=== PATIENT | male | born 1990 | race Caucasian/White ===

== ENCOUNTER 2016-09-08 23:01 | Inpatient (IN) | payer SELFPAY ==
[~2016-09-08] VITALS: Ht 170.1 cm; Wt 57.8 kg
[~2016-09-08 23:01] MED LIST: ANAPROX DS550 MG PO; BACTRIM DS 8001 TA1 PO; CATAFLAM50 MG PO; CIPRO500 MG PO; CLARITIN10 MG PO; CORTISPORIN 1%-10 M1 OT; EES400 MG PO; NKHM; PERCOCET 325 MG1 TA2 PO; TRIMOX500 MG PO; ZOVIRAX800 MG PO
[2016-09-08 23:07] VITALS: BP 156/82
[2016-09-08 23:35] LABS: BASO # 0.1 10*3/uL (0.0-0.1); BASO % 0.6 % (0.0-1.0); EOS # 0.1 10*3/uL (0.0-0.4); EOS % 1.1 % (1.0-4.0); HEMATOCRIT 43.3 % (42.0-52.0); HEMOGLOBIN 15.3 g/dl (14.0-18.0); LYMPH # 4.1 10*3/uL (1.3-4.4); MEAN CELL VOLUME 86.8 fl (80.0-94.0); MEAN CORPUSCULAR HGB 30.7 pg (27.0-31.0); MEAN CORPUSCULAR HGB CONC 35.3 g/dl (33.0-37.0); MEAN PLATELET VOLUME 9.8 fl (9.6-12.3); MONO # 0.8 10*3/uL (0.1-1.0); MONO % 6.6 % (3.0-9.0); NEUT # 7.2 10*3/uL (2.3-7.9); NEUT % 58.5 % (47.0-73.0); PLATELET COUNT AUTOMATED 297 10*3/uL (130-400); RED BLOOD COUNT 4.99 10*6/uL (4.50-5.90); RED CELL DISTRI WIDTH 12.5 % (0-14.5); WHITE BLOOD COUNT 12.3 10*3/uL (4.8-10.8)
[2016-09-08 23:46] LABS: INTERNATIONAL NORM RATIO 0.9 (2.0-3.5); PROTHROMBIN TIME 9.5 SECONDS (9.0-12.4)
[2016-09-08 23:53] LABS: ALBUMIN 4.1 gm/dl (3.1-4.5); ALKALINE PHOSPHATASE 67 U/L (45-117); BILIRUBIN, TOTAL 0.6 mg/dl (0.2-1.0); BUN 6 mg/dl (7-24); CARBON DIOXIDE 25 mmol/L (21-32); CHLORIDE 104 mmol/L (98-107); EST GLOM FILT AFRICAN AMERICAN > 60 ml/min; GLUCOSE 76 mg/dL (65-99); POTASSIUM 3.6 mmol/L (3.5-5.1); SGOT/AST 32 IU/L (3-35); SGPT/ALT 45 U/L (12-78); SODIUM 138 mmol/L (136-145); TOTAL PROTEIN 7.8 gm/dL (6.4-8.2)
[2016-09-08 23:55] LABS: TROPONIN I < 0.015 ng/ml (<0.045)
[2016-09-09] VITALS (7 sets, daily range): BP systolic 100–167; BP diastolic 52–90
[2016-09-09 00:43] LABS: BILIRUBIN NEGATIVE (NEGATIVE); BLOOD NEGATIVE (NEGATIVE); CLARITY CLEAR (CLEAR); COLOR YELLOW (YELLOW); GLUCOSE NEGATIVE (NEGATIVE); KETONE NEGATIVE (NEGATIVE); LEUKO ESTERASE NEGATIVE (NEGATIVE); NITRITE NEGATIVE (NEGATIVE); PH 5.5 (5.0-9.0); PROTEIN NEGATIVE (NEGATIVE); SPECIFIC GRAVITY <= 1.005 (1.005-1.030); UROBILINOGEN 0.2 E.U./dl (0.2-1.0)
[2016-09-09 00:44] LABS: BACTERIA TRACE; EPITHELIAL CELLS 0-2; RBC 0-2 rbc/hpf (0-2); URINE REFLEX COMMENT NO (NO); WBC 0-2 wbc/hpf (0-5)
[2016-09-09 00:45] LABS: URINE AMPHETAMINES < 1000 (1000ng/ml); URINE BARBITURATES < 200 (200ng/ml); URINE COCAINE < 300 (300ng/ml)
[2016-09-09 06:14] LABS: BASO # 0.1 10*3/uL (0.0-0.1); BASO % 0.9 % (0.0-1.0); EOS # 0.2 10*3/uL (0.0-0.4); EOS % 2.5 % (1.0-4.0); HEMATOCRIT 43.7 % (42.0-52.0); HEMOGLOBIN 15.1 g/dl (14.0-18.0); LYMPH # 2.2 10*3/uL (1.3-4.4); LYMPH % 33.4 % (27.0-41.0); MEAN CELL VOLUME 88.8 fl (80.0-94.0); MEAN CORPUSCULAR HGB 30.7 pg (27.0-31.0); MEAN CORPUSCULAR HGB CONC 34.6 g/dl (33.0-37.0); MEAN PLATELET VOLUME 10.1 fl (9.6-12.3); MONO # 0.4 10*3/uL (0.1-1.0); MONO % 5.8 % (3.0-9.0); NEUT # 3.8 10*3/uL (2.3-7.9); NEUT % 57.1 % (47.0-73.0); PLATELET COUNT AUTOMATED 269 10*3/uL (130-400); RED BLOOD COUNT 4.92 10*6/uL (4.50-5.90); RED CELL DISTRI WIDTH 12.8 % (0-14.5); WHITE BLOOD COUNT 6.7 10*3/uL (4.8-10.8)
[2016-09-09 06:25] LABS: CKMB 1.6 ng/ml (0.5-3.6); CPK 189 U/L (39-308)
[2016-09-09 06:38] LABS: TROPONIN I < 0.015 ng/ml (<0.045)
[2016-09-09 06:43] LABS: ALBUMIN 3.7 gm/dl (3.1-4.5); ALKALINE PHOSPHATASE 63 U/L (45-117); BILIRUBIN, TOTAL 0.6 mg/dl (0.2-1.0); BUN 6 mg/dl (7-24); CARBON DIOXIDE 26 mmol/L (21-32); CHLORIDE 110 mmol/L (98-107); CHOLESTEROL 165 mg/dL (<200); EST GLOM FILT AFRICAN AMERICAN > 60 ml/min; GLUCOSE 80 mg/dL (65-99); HDL CHOLESTEROL 134 mg/dl (40-60); LDL CHOLESTEROL 24 mg/dL (9-159); MAGNESIUM 2.5 mg/dL (1.5-2.1); PHOSPHOROUS 3.4 mg/dL (2.5-4.9); POTASSIUM 4.2 mmol/L (3.5-5.1); SGOT/AST 33 IU/L (3-35); SGPT/ALT 41 U/L (12-78); SODIUM 143 mmol/L (136-145); TOTAL PROTEIN 7.3 gm/dL (6.4-8.2); TRIGLYCERIDES 37 mg/dl (<150); VLDL CHOLESTEROL 7 mg/dL (6-40)
[2016-09-09 06:45] LABS: INTERNATIONAL NORM RATIO 0.9 (2.0-3.5); PROTHROMBIN TIME 9.6 SECONDS (9.0-12.4)
[2016-09-09 06:49] LABS: FREE T4 0.78 ng/dl (0.76-1.46)
[2016-09-09 07:04] LABS: HEMOGLOBIN A1c 5.4 % (4.8-5.6)
[2016-09-09 07:36] LABS: FOLIC ACID 8.1 ng/mL (>5.38)
[2016-09-09 12:12] LABS: CKMB 1.5 ng/ml (0.5-3.6); CPK 168 U/L (39-308)
[2016-09-09 12:13] LABS: TROPONIN I < 0.015 ng/ml (<0.045)
[2016-09-09] MEDS ORDERED: D3-5050000 IU PO (12:26)
== END 2016-09-09 13:05 | disposition home or self-care (01) | DRG 313 ==
LOC: ED 23:01 → 4E 09-09 01:26 → EDHOLD 09-09 01:26 → 4E 09-09 01:32
PROVIDERS: Internal Medicine; Physician Assistant
DX: R07.9 Chest pain, unspecified (principal); E83.41 Hypermagnesemia; I10 Essential (primary) hypertension; F41.9 Anxiety disorder, unspecified; F17.210 Nicotine dependence, cigarettes, uncomplicated; Z82.49 Family history of ischemic heart disease and other diseases of the circulatory system; Z88.0 Allergy status to penicillin; Z91.048 Other nonmedicinal substance allergy status; F41.0 Panic disorder [episodic paroxysmal anxiety]; F10.10 Alcohol abuse, uncomplicated; D72.829 Elevated white blood cell count, unspecified; R00.0 Tachycardia, unspecified; E55.9 Vitamin D deficiency, unspecified; Z71.6 Tobacco abuse counseling

== ENCOUNTER 2017-01-05 01:29 | Emergency (ER) | payer SELFPAY ==
[~2017-01-05] VITALS: Ht 180.3 cm; Wt 81.6 kg
[~2017-01-05 01:29] MED LIST changes: +D3-5050000 IU PO
[2017-01-05 01:39] LABS: BASO # 0.1 10*3/uL (0.0-0.1); BASO % 0.6 % (0.0-1.0); EOS # 0.2 10*3/uL (0.0-0.4); EOS % 1.7 % (1.0-4.0); HEMATOCRIT 41.1 % (42.0-52.0); HEMOGLOBIN 14.7 g/dl (14.0-18.0); LYMPH # 4.5 10*3/uL (1.3-4.4); LYMPH % 36.7 % (27.0-41.0); MEAN CELL VOLUME 88.4 fl (80.0-94.0); MEAN CORPUSCULAR HGB 31.6 pg (27.0-31.0); MEAN CORPUSCULAR HGB CONC 35.8 g/dl (33.0-37.0); MEAN PLATELET VOLUME 9.6 fl (9.6-12.3); MONO # 0.9 10*3/uL (0.1-1.0); MONO % 7.6 % (3.0-9.0); NEUT # 6.5 10*3/uL (2.3-7.9); NEUT % 53.2 % (47.0-73.0); PLATELET COUNT AUTOMATED 247 10*3/uL (130-400); RED BLOOD COUNT 4.65 10*6/uL (4.50-5.90); RED CELL DISTRI WIDTH 11.9 % (0-14.5); WHITE BLOOD COUNT 12.3 10*3/uL (4.8-10.8)
[2017-01-05 01:43] LABS: ABG BASE EXCESS -1.1 mmol/L (-2.0-2.0); ABG CO2 CONTENT 22.7 mmol/L (23-27); ABG HCO3 21.7 mmol/l (22-26); ABG TEMPERATURE 96.6 F (98.0-99.0); ARTERIAL BLOOD GAS PH 7.457 (7.35-7.45)
[2017-01-05 01:57] LABS: ALKALINE PHOSPHATASE 67 U/L (45-117); BILIRUBIN, TOTAL 0.3 mg/dl (0.2-1.0); BUN 7 mg/dl (7-24); CARBON DIOXIDE 21 mmol/L (21-32); CHLORIDE 103 mmol/L (98-107); CPK 223 U/L (39-308); EST GLOM FILT AFRICAN AMERICAN > 60 ml/min; GLUCOSE 83 mg/dL (65-99); LDH 226 U/L (87-241); POTASSIUM 3.7 mmol/L (3.5-5.1); SGOT/AST 29 IU/L (3-35); SGPT/ALT 32 U/L (12-78); SODIUM 135 mmol/L (136-145); TOTAL PROTEIN 7.6 gm/dL (6.4-8.2)
[2017-01-05 01:58] LABS: CKMB 2.8 ng/ml (0.5-3.6); TROPONIN I < 0.015 ng/ml (<0.045)
[2017-01-05 02:05] LABS: BILIRUBIN NEGATIVE (NEGATIVE); BLOOD NEGATIVE (NEGATIVE); CLARITY CLEAR (CLEAR); COLOR YELLOW (YELLOW); GLUCOSE NEGATIVE (NEGATIVE); KETONE NEGATIVE (NEGATIVE); LEUKO ESTERASE NEGATIVE (NEGATIVE); NITRITE NEGATIVE (NEGATIVE); PROTEIN NEGATIVE (NEGATIVE); SPECIFIC GRAVITY <= 1.005 (1.005-1.030); UROBILINOGEN 0.2 E.U./dl (0.2-1.0)
[2017-01-05 02:12] LABS: BACTERIA TRACE; RBC 0-2 rbc/hpf (0-2); WBC 0-2 wbc/hpf (0-5)
[2017-01-05 02:13] LABS: URINE REFLEX COMMENT NO (NO)
[2017-01-05 02:15] LABS: URINE AMPHETAMINES < 1000 (1000ng/ml); URINE BARBITURATES < 200 (200ng/ml); URINE COCAINE < 300 (300ng/ml)
== END 2017-01-05 05:15 | disposition home or self-care (01) ==
LOC: ED 01:29
PROVIDERS: Physician Assistant
DX: S06.0X0A Concussion without loss of consciousness, initial encounter (principal); S01.01XA Laceration without foreign body of scalp, initial encounter; S09.90XA Unspecified injury of head, initial encounter; F10.929 Alcohol use, unspecified with intoxication, unspecified; I10 Essential (primary) hypertension; R06.02 Shortness of breath; J45.909 Unspecified asthma, uncomplicated; F12.10 Cannabis abuse, uncomplicated; F17.200 Nicotine dependence, unspecified, uncomplicated; Z91.030 Bee allergy status; Z88.0 Allergy status to penicillin; W18.39XA Other fall on same level, initial encounter; Y93.89 Activity, other specified; Y92.89 Other specified places as the place of occurrence of the external cause; Y99.8 Other external cause status

== ENCOUNTER 2017-04-13 01:23 | Emergency (ER) | payer SELFPAY ==
[~2017-04-13] VITALS: Ht 162.5 cm; Wt 56.7 kg
== END 2017-04-13 03:05 | disposition home or self-care (01) ==
LOC: ED 01:23
DX: F41.9 Anxiety disorder, unspecified (principal); F12.10 Cannabis abuse, uncomplicated; F17.200 Nicotine dependence, unspecified, uncomplicated; I10 Essential (primary) hypertension; Z90.49 Acquired absence of other specified parts of digestive tract; Z91.030 Bee allergy status; Z88.0 Allergy status to penicillin

== ENCOUNTER 2017-10-12 02:36 | Emergency (ER) | payer SELFPAY ==
[~2017-10-12] VITALS: Ht 167.6 cm; Wt 77.1 kg
--- NOTE | ~2017-10-12 | EKG ---
[place], [place] ELECTROCARDIOGRAM REPORT NAME: SUKHWINDER [place] UNIT #: [id number] ROOM: DOCTOR: SU SUTTON MD BIRTHDATE: [birth year] DOS: 10/12/2017 TIME: 0322 hours FINDINGS: 1. Sinus tachycardia at 170 beats per minute. 2. Left atrial abnormality. 3. Left ventricular hypertrophy. 4. No previous tracing is available for comparison. SU SUTTON MD CM:EKGRPT:ELECTROCARDIOGRAM REPORT [id number] 1450 SU SUTTON MD
[2017-10-12 02:58] LABS: BASO # 0.1 10*3/uL (0.0-0.1); BASO % 0.6 % (0.0-1.0); EOS # 0.1 10*3/uL (0.0-0.4); EOS % 0.6 % (1.0-4.0); HEMATOCRIT 43.6 % (42.0-52.0); HEMOGLOBIN 15.1 g/dl (14.0-18.0); LYMPH # 3.1 10*3/uL (1.3-4.4); LYMPH % 27.2 % (27.0-41.0); MEAN CELL VOLUME 89.9 fl (80.0-94.0); MEAN CORPUSCULAR HGB 31.1 pg (27.0-31.0); MEAN CORPUSCULAR HGB CONC 34.6 g/dl (33.0-37.0); MEAN PLATELET VOLUME 10.1 fl (9.6-12.3); MONO # 0.8 10*3/uL (0.1-1.0); MONO % 7.2 % (3.0-9.0); NEUT # 7.3 10*3/uL (2.3-7.9); NEUT % 64.1 % (47.0-73.0); PLATELET COUNT AUTOMATED 245 10*3/uL (130-400); RED BLOOD COUNT 4.85 10*6/uL (4.50-5.90); RED CELL DISTRI WIDTH 12.5 % (0-14.5); WHITE BLOOD COUNT 11.4 10*3/uL (4.8-10.8)
[2017-10-12 03:12] LABS: ALBUMIN 4.4 gm/dl (3.1-4.5); ALKALINE PHOSPHATASE 76 U/L (45-117); BUN 7 mg/dl (7-24); CHLORIDE 105 mmol/L (98-107); CREATININE 1.01 mg/dL (0.70-1.30); POTASSIUM 3.4 mmol/L (3.5-5.1); SGOT/AST 32 IU/L (3-35); SGPT/ALT 52 U/L (12-78); SODIUM 140 mmol/L (136-145); TOTAL PROTEIN 7.9 gm/dL (6.4-8.2)
[2017-10-12 03:13] LABS: ACETAMINOPHEN (TYLENOL) < 2.0 ug/ml (10-30)
== END 2017-10-12 06:45 | disposition home or self-care (01) ==
LOC: ED 02:36
PROVIDERS: Emergency Medicine Emergency Medical Services
DX: F10.129 Alcohol abuse with intoxication, unspecified (principal); I10 Essential (primary) hypertension; F12.10 Cannabis abuse, uncomplicated; F17.200 Nicotine dependence, unspecified, uncomplicated; Z91.030 Bee allergy status; Z88.0 Allergy status to penicillin; Y90.9 Presence of alcohol in blood, level not specified

== ENCOUNTER 2021-11-23 20:23 | Emergency (ER) | payer SELFPAY ==
[~2021-11-23] VITALS: Ht 172.7 cm; Wt 71.7 kg
== END 2021-11-23 21:23 | disposition home or self-care (01) ==
LOC: ED 20:23
DX: F10.120 Alcohol abuse with intoxication, uncomplicated (principal); F14.90 Cocaine use, unspecified, uncomplicated; F17.200 Nicotine dependence, unspecified, uncomplicated; F12.10 Cannabis abuse, uncomplicated; Z90.49 Acquired absence of other specified parts of digestive tract; Z91.030 Bee allergy status; Z88.0 Allergy status to penicillin; Y90.9 Presence of alcohol in blood, level not specified

== ENCOUNTER 2022-03-11 16:33 | Emergency (ER) | payer SELFPAY ==
[~2022-03-11] VITALS: Ht 162.5 cm; Wt 59.0 kg
[2022-03-11] MEDS ORDERED: PEPCID40 MG PO (17:45)
[2022-03-11] MEDS ORDERED: HYDROXYZINE HCL25 MG PO (17:45)
[2022-03-11] MEDS ORDERED: MEDROL DOSEPAK4 MG PO (17:45)
[2022-03-11] MEDS ORDERED: PROAIR HFA8.5 GM INH (17:45)
== END 2022-03-11 17:50 | disposition home or self-care (01) ==
LOC: ED 16:33
DX: T63.441A Toxic effect of venom of bees, accidental (unintentional), initial encounter (principal); Z91.030 Bee allergy status; Z88.0 Allergy status to penicillin; Z90.49 Acquired absence of other specified parts of digestive tract; F17.200 Nicotine dependence, unspecified, uncomplicated; Y92.89 Other specified places as the place of occurrence of the external cause

== ENCOUNTER 2022-06-26 19:12 | Emergency (ER) | payer SELFPAY ==
[~2022-06-26] VITALS: Ht 162.5 cm; Wt 56.7 kg
[~2022-06-26 19:12] MED LIST changes: +HYDROXYZINE HCL25 MG PO; +MEDROL DOSEPAK4 MG PO; +PEPCID40 MG PO; +PROAIR HFA8.5 GM INH
== END 2022-06-26 20:13 | disposition left against medical advice (07) ==
LOC: ED 19:12
DX: S59.901A Unspecified injury of right elbow, initial encounter (principal); Z53.21 Procedure and treatment not carried out due to patient leaving prior to being seen by health care provider; X58.XXXA Exposure to other specified factors, initial encounter; Y93.89 Activity, other specified; Y92.89 Other specified places as the place of occurrence of the external cause; Y99.8 Other external cause status

== ENCOUNTER 2022-10-17 18:41 | Emergency (ER) | payer SELFPAY ==
[~2022-10-17] VITALS: Ht 162.5 cm; Wt 56.7 kg
[2022-10-17 20:09] LABS: BASO # 0.1 10*3/uL (0.0-0.1); BASO % 0.8 % (0.0-1.0); EOS # 0.4 10*3/uL (0.0-0.4); EOS % 3.4 % (1.0-4.0); HEMATOCRIT 44.7 % (42.0-52.0); LYMPH # 3.7 10*3/uL (1.3-4.4); MEAN CORPUSCULAR HGB 30.7 pg (27.0-31.0); MEAN CORPUSCULAR HGB CONC 33.3 g/dl (33.0-37.0); MEAN PLATELET VOLUME 9.6 fl (9.6-12.3); MONO # 0.9 10*3/uL (0.1-1.0); MONO % 7.4 % (3.0-9.0); NEUT # 6.4 10*3/uL (2.3-7.9); PLATELET COUNT AUTOMATED 332 10*3/uL (130-400); RED BLOOD COUNT 4.86 10*6/uL (4.50-5.90); RED CELL DISTRI WIDTH 12.7 % (0-14.5); WHITE BLOOD COUNT 11.4 10*3/uL (4.8-10.8)
[2022-10-17 20:21] LABS: ACT PARTIAL THROMBO TIME 32.4 SECONDS (20.0-32.1); INTERNATIONAL NORM RATIO 0.9 (2.0-3.5)
[2022-10-17 20:32] LABS: ALKALINE PHOSPHATASE 82 U/L (46-116); BUN 13 mg/dl (9-23); CHLORIDE 107 mmol/L (98-107); ETHYL ALCOHOL < 3.0 mg/dl (<3); LIPASE 51 U/L (12-53); POTASSIUM 4.3 mmol/L (3.4-5.1); SGPT/ALT 18 U/L (10-49); TOTAL PROTEIN 7.1 gm/dL (6.0-8.0)
[2022-10-18 06:34] LABS: BILIRUBIN Negative (Negative); BLOOD Negative (Negative); CLARITY Clear (Clear); COLOR Yellow (Yellow); GLUCOSE Negative (Negative); KETONE Negative (Negative); LEUKO ESTERASE Negative (Negative); NITRITE Negative (Negative); PH 5.5 (4.5-8.0); SPECIFIC GRAVITY >= 1.030 (1.001-1.030)
[2022-10-18 06:42] LABS: URINE AMPHETAMINES Positive (1000ng/ml); URINE BARBITURATES Negative (200ng/ml); URINE BENZODIAZEPINES Negative (200ng/ml); URINE CANNABINOIDS (THC) Positive (50ng/ml); URINE COCAINE Positive (300ng/ml); URINE METHADONE Negative (300ng/ml); URINE OPIATES Negative (300ng/ml); URINE PHENCYCLIDINE Negative (25ng/ml)
[2022-10-18 07:08] LABS: BACTERIA 1+; CALCIUM OXALATE CRYSTALS 2+; MUCOUS 1+
== END 2022-10-18 07:31 | disposition left against medical advice (07) ==
LOC: ED 18:41
PROVIDERS: Emergency Medicine
DX: F19.10 Other psychoactive substance abuse, uncomplicated (principal); J45.909 Unspecified asthma, uncomplicated; F41.9 Anxiety disorder, unspecified; Z91.030 Bee allergy status; Z88.0 Allergy status to penicillin; Z90.49 Acquired absence of other specified parts of digestive tract; F10.10 Alcohol abuse, uncomplicated; F17.200 Nicotine dependence, unspecified, uncomplicated; F12.10 Cannabis abuse, uncomplicated; Z79.899 Other long term (current) drug therapy

== ENCOUNTER 2023-03-21 12:15 | Emergency (ER) | payer SELFPAY ==
[~2023-03-21] VITALS: Ht 162.5 cm; Wt 59.0 kg
[2023-03-21] MEDS ORDERED: CLEOCIN HCL300 MG PO (13:58)
== END 2023-03-21 14:06 | disposition home or self-care (01) ==
LOC: ED 12:15
DX: S61.431A Puncture wound without foreign body of right hand, initial encounter (principal); J45.909 Unspecified asthma, uncomplicated; F41.9 Anxiety disorder, unspecified; Z91.030 Bee allergy status; Z88.0 Allergy status to penicillin; Z90.49 Acquired absence of other specified parts of digestive tract; F12.10 Cannabis abuse, uncomplicated; F17.200 Nicotine dependence, unspecified, uncomplicated; F10.10 Alcohol abuse, uncomplicated; F14.90 Cocaine use, unspecified, uncomplicated; W01.198A Fall on same level from slipping, tripping and stumbling with subsequent striking against other object, initial encounter; Y93.89 Activity, other specified; Y92.89 Other specified places as the place of occurrence of the external cause; Y99.8 Other external cause status

== ENCOUNTER 2023-04-30 18:48 | Emergency (ER) | payer SELFPAY ==
[~2023-04-30] VITALS: Ht 162.5 cm; Wt 56.7 kg
[~2023-04-30 18:48] MED LIST changes: +CLEOCIN HCL300 MG PO
== END 2023-04-30 21:42 | disposition home or self-care (01) ==
LOC: ED 18:48
DX: F41.9 Anxiety disorder, unspecified (principal); Z91.030 Bee allergy status; J45.909 Unspecified asthma, uncomplicated; E83.41 Hypermagnesemia; I10 Essential (primary) hypertension; Z88.0 Allergy status to penicillin; Z90.49 Acquired absence of other specified parts of digestive tract; F10.10 Alcohol abuse, uncomplicated; F12.10 Cannabis abuse, uncomplicated; F17.200 Nicotine dependence, unspecified, uncomplicated

== ENCOUNTER 2024-08-28 14:29 | Emergency (ER) | payer SELFPAY ==
[~2024-08-28] VITALS: Wt 65.8 kg
[2024-08-28] MEDS ORDERED: Tdap Vaccine 0.5 ML SYR (Adult Vaccine) IM ONE (14:50)
[2024-08-28] MEDS ORDERED: METRONIDAZOLE500 M1 PO ×2 (15:42→15:48)
[2024-08-28] MEDS ORDERED: CEFUROXIME AXE500 MG PO ×2 (15:42→15:48)
[2024-08-28] MEDS ORDERED: Cefuroxime Axetil 250 MG TAB PO ONE (15:45)
[2024-08-28] MEDS ORDERED: metroNIDAZOLE 500 MG TAB PO ONE (15:45)
== END 2024-08-28 15:45 | disposition home or self-care (01) ==
LOC: ED 14:29
DX: S61.214A Laceration without foreign body of right ring finger without damage to nail, initial encounter (principal); S61.012A Laceration without foreign body of left thumb without damage to nail, initial encounter; J45.909 Unspecified asthma, uncomplicated; F41.9 Anxiety disorder, unspecified; I10 Essential (primary) hypertension; F17.200 Nicotine dependence, unspecified, uncomplicated; Z91.030 Bee allergy status; Z88.0 Allergy status to penicillin; Z79.899 Other long term (current) drug therapy; Z90.49 Acquired absence of other specified parts of digestive tract; W54.0XXA Bitten by dog, initial encounter; Y93.89 Activity, other specified; Y92.89 Other specified places as the place of occurrence of the external cause; Y99.8 Other external cause status

== ENCOUNTER 2025-01-19 07:58 | Emergency (ER) | payer OTHER ==
[~2025-01-19] VITALS: Ht 162.5 cm
[~2025-01-19 07:58] MED LIST changes: +CEFUROXIME AXE500 MG PO; +METRONIDAZOLE500 M1 PO
[2025-01-19 08:43] LABS: BASO # 0.1 10*3/uL (0.0-0.1); BASO % 1.2 % (0.0-1.0); EOS # 0.3 10*3/uL (0.0-0.4); EOS % 5.2 % (1.0-4.0); MEAN CELL VOLUME 94.2 fl (80.0-94.0); MEAN CORPUSCULAR HGB 31.8 pg (27.0-31.0); MEAN PLATELET VOLUME 9.8 fl (9.6-12.3); MONO # 0.6 10*3/uL (0.1-1.0); MONO % 9.6 % (3.0-9.0); NEUT # 3.5 10*3/uL (2.3-7.9); NEUT % 58.6 % (47.0-73.0); NUCLEATED RED BLOOD CELL 0.0 % (0.0-0.0); NUCLEATED RED BLOOD CELL 0.0 10*3/uL (0.0-0.0); PLATELET COUNT AUTOMATED 269 10*3/uL (130-400); RED CELL DISTRI WIDTH 12.2 % (0-14.5)
[2025-01-19 09:12] LABS: BUN 8 mg/dl (9-23)
[2025-01-19] MEDS ORDERED: Dexamethasone Sodium Phospha 20 MG/5 ML VIAL IM ONE (09:25)
[2025-01-19] MEDS ORDERED: MEDROL DOSEPAK4 MG PO (09:33)
[2025-01-19] MEDS ORDERED: CYCLOBENZAPRINE5 M3 PO (09:33)
[2025-01-19] MEDS ORDERED: MELOXICAM15 MG PO (09:33)
== END 2025-01-19 09:36 | disposition home or self-care (01) ==
LOC: ED 07:58
PROVIDERS: Internal Medicine
DX: M62.830 Muscle spasm of back (principal); M54.50 Low back pain, unspecified; R10.9 Unspecified abdominal pain; R11.2 Nausea with vomiting, unspecified; F17.200 Nicotine dependence, unspecified, uncomplicated; Z91.030 Bee allergy status; Z88.0 Allergy status to penicillin; Z90.49 Acquired absence of other specified parts of digestive tract

== ENCOUNTER 2025-02-01 06:22 | Emergency (ER) | payer OTHER ==
[~2025-02-01] VITALS: Ht 162.5 cm; Wt 61.2 kg
[~2025-02-01 06:22] MED LIST changes: +CYCLOBENZAPRINE5 M3 PO; +MELOXICAM15 MG PO
[2025-02-01] MEDS ORDERED: METHOCARBAMOL 500 MG TAB PO ONE (06:45)
[2025-02-01] MEDS ORDERED: NAPROXEN250 MG PO (06:57)
[2025-02-01] MEDS ORDERED: METHOCARBAMOL500 M1 PO (06:57)
== END 2025-02-01 07:15 | disposition home or self-care (01) ==
LOC: ED 06:22
DX: S39.012A Strain of muscle, fascia and tendon of lower back, initial encounter (principal); J45.909 Unspecified asthma, uncomplicated; F41.9 Anxiety disorder, unspecified; Z88.0 Allergy status to penicillin; Z91.030 Bee allergy status; Z90.49 Acquired absence of other specified parts of digestive tract; X50.0XXA Overexertion from strenuous movement or load, initial encounter; Y93.89 Activity, other specified; Y92.89 Other specified places as the place of occurrence of the external cause; Y99.8 Other external cause status